=== PATIENT | male | born 1995 | race Hispanic/Latino ===

== ENCOUNTER 2017-01-16 05:17 | Emergency (ER) | payer OTHER ==
[2017-01-16 05:32] VITALS: BMI 22.7
[2017-01-16 06:18] VITALS: BP 148/87; PULSE 113; RESP 16; TEMP 98; O2SAT 98
--- NOTE | 2017-01-16 06:20 | ED PDOC ---
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 He admits that he did make those statements and now he realizes how they could be construed as suicidal. Denies any suicidal Ideation, homicidal ideation or any further medical complaints. Past Medical History Reviewed: Historical Data, Nursing Documentation, Vital Signs Vital Signs: Last Vital Signs Temp 98.0 F 01/16/17 05:36 Pulse 113 H 01/16/17 05:36 Resp 16 01/16/17 05:36 BP 148/87 01/16/17 05:36 Pulse Ox 98 01/16/17 06:35 - Surgical History Other surgeries: [place] tooth removed - Family History Family History: States: Unknown Family Hx - Social History Current smoker - smoking cessation education provided: No Alcohol: Social Drugs: Denies - Allergies Allergies/Adverse Reactions: Allergies Allergy/AdvReac Type Severity Reaction Status Date / Time azithromycin Allergy RASH Verified 01/16/17 05:36 Review of Systems ROS Statement: Except As Marked, All Systems Reviewed And Found Negative (As per HPI, otherwise negative) Psych: Negative for: Suicidal ideation, Other (Homicidal Ideation) Physical Exam - Reviewed Nursing Documentation Reviewed: Yes Vital Signs Reviewed: Yes - Physical Exam Appears: Positive for: Well, Non-toxic, No Acute Distress Head Exam: Positive for: ATRAUMATIC, NORMAL INSPECTION, NORMOCEPHALIC Skin: Positive for: Normal Color, Warm, Dry Cardiovascular/Chest: Positive for: Regular Rate, Rhythm. Negative for: Murmur Respiratory: Positive for: Normal Breath Sounds. Negative for: Accessory Muscle Use, Respiratory Distress Neurologic/Psych: Positive for: Alert, Oriented (x3) - ECG O2 Sat by Pulse Oximetry: 98 (RA) Pulse Ox Interpretation: Normal Medical Decision Making Medical Decision Making: Time: 05:32 Initial Impression: 21 y/o male for crisis evaluation Plan: Crisis Evaluation as ordered 1:1 Obs for suicide precaution Reevaluation Time: 06:30 Patient evaluated by crisis and found to be stable for discharge Upon provider reevaluation patient is medically stable, and requires no further treatment in the ED at this time. Patient will be discharged home. Clinical Impression: Alcohol induced mood disorder Scribe Attestation: Documented by Fortunato Garza acting as a scribe for Kush Huizar MD. Scribe Attestation: All medical record entries made by the Scribe were at my direction and personally dictated by me. I have reviewed the chart and agree that the record accurately reflects my personal performance of the history, physical exam, medical decision making, and the department course for this patient. I have also personally directed, reviewed, and agree with the discharge instructions and disposition. Disposition - Clinical Impression Clinical Impression: Alcohol-induced mood disorder - Patient ED Disposition Is Patient to be Admitted: No - Disposition Disposition: Routine/Home Disposition Time: 06:30 Condition: STABLE Forms: [employer] ([place])
== END 2017-01-16 06:30 | disposition home or self-care (01) ==
LOC: H.ER 05:17
DX: F10.94 Alcohol use, unspecified with alcohol-induced mood disorder (principal)